=== PATIENT | female | born 1990 | race Caucasian/White ===

== ENCOUNTER 2023-12-15 17:33 | Emergency (ER) | payer OTHER ==
[2023-12-15] MEDS ORDERED: SODIUM CHLORIDE 0.9% 1,000 ML IV ONE (17:53)
[2023-12-15] MEDS ORDERED: ONDANSETRON 4 MG/2 ML VIAL IVP STA (17:53)
[2023-12-15] MEDS ORDERED: MORPHINE SULFATE 4 MG/ML SYRINGE IVP STA (17:53)
[2023-12-15] MEDS ORDERED: PIPERACILLIN-TAZOBACTAM 3.375 GM in SODIUM CHLORIDE 0.9% 100 ML IVPB STA (18:04)
[2023-12-15 18:05] VITALS: RESP 18
--- NOTE | 2023-12-15 18:16 | ED ---
Abdominal Pain HPI - General Chief Complaint: Abdominal Pain Stated Complaint: Abd Pain Time Seen by Provider: 12/15/23 17:49 Source: patient Mode of arrival: ambulatory Limitations: no limitations - History of Present Illness Initial Comments: 33-year-old female sent in from PCP for abnormal ultrasound and labs. Patient was seen by her PCP today for abdominal pain. She started having severe epigastric pain last night. She had faint pain on Monday which went away and resumed yesterday. She also mitts to nausea and vomiting. She had an outpatient ultrasound performed which showed that the common bile duct was at the upper limits of normal at 6 mm, also showed some sludge in the gallbladder. Her labs show bilirubin of 2.9 as well as AST 461 and ALT 503. Alkaline phosphatase 130. Upon presentation to the ER she is having continued pain and nausea. We do not have GI coverage at this time and the patient will require transfer. - Related Data Allergies Allergy/AdvReac Type Severity Reaction Status Date / Time No Known Allergies Allergy Verified 12/15/23 17:45 Review of Systems ROS Statement: Those systems with pertinent positive or pertinent negative responses have been documented in the HPI. ROS Other: All systems not noted in ROS Statement are negative. Past Medical History History of Any Multi-Drug Resistant Organisms: None Reported Past Surgical History: Section Past Psychological History: No Psychological Hx Reported Smoking Status: Never smoker Past Alcohol Use History: Occasional Past Drug Use History: None Reported General Exam Limitations: no limitations General appearance: alert, in no apparent distress Head exam: Present: atraumatic, normocephalic Eye exam: Present: normal appearance Neck exam: Present: normal inspection Respiratory exam: Present: normal lung sounds bilaterally. Absent: respiratory distress, wheezes, rales, rhonchi, stridor Cardiovascular Exam: Present: regular rate, normal rhythm, normal heart sounds. Absent: systolic murmur, diastolic murmur, rubs, gallop, clicks GI/Abdominal exam: Present: soft, tenderness. Absent: distended, guarding, rebound, rigid Neurological exam: Present: alert, oriented X3 Psychiatric exam: Present: normal affect, normal mood Skin exam: Present: warm, dry Course Vital Signs 12/15/23 12/15/23 17:41 19:08 Temperature 99.6 F Pulse Rate 77 63 Respiratory 18 18 Rate Blood Pressure 135/90 112/62 O2 Sat by Pulse 98 96 Oximetry Medical Decision Making - Medical Decision Making Was pt. sent in by a medical professional or institution (JOVANNI Price, AD OPERATIONS COORDINATOR, urgent care, hospital, or penitentiary...) When possible be specific @ -Sent by PCP Did you speak to anyone other than the patient for history (EMS, parent, family, police, friend...)? What history was obtained from this source @ -No Did you review nursing and triage notes (agree or disagree)? Why? @ -I reviewed and agree with nursing and triage notes Were old charts reviewed (outside hosp., previous admission, EMS record, old EKG, old radiological studies, urgent care reports/EKG's, penitentiary records)? Report findings @ -Patient's ultrasound and lab work performed outpatient today are reviewed, they show a hyperbilirubinemia and transaminitis. Ultrasound showed gallbladder sludge and common bile duct at the upper limits of normal at 6 mm. Differential Diagnosis (chest pain, altered mental status, abdominal pain women, abdominal pain men, vaginal bleeding, weakness, fever, dyspnea, syncope, headache, dizziness, GI bleed, back pain, seizure, CVA, palpatations, mental health, musculoskeletal)? @ -MDM Differential Abdominal Pain Women: Appendicitis, Cholecystitis, diverticulosis, ischemic bowel, pancreatitis, hepatitis, UTI, gastroenteritis, AAA, incarcerated hernia, bowel obstruction, constipation, inflammatory bowel, hepatitis, peptic ulcer disease, splenic infarction, perforated viscus, vulvitis, ovarian torsion, PID, kidney stone, placenta abruption... This is not meant to be an all-inclusive list EKG interpreted by me (3pts min.). @ -As above X-rays interpreted by me (1pt min.). @ -None done CT interpreted by me (1pt min.). @ -None done U/S interpreted by me (1pt. min.). @ -None done What testing was considered but not performed or refused? (CT, X-rays, U/S, labs)? Why? @ -None What meds were considered but not given or refused? Why? @ -None Did you discuss the management of the patient with other professionals (professionals i.e. JOVANNI Price, AD OPERATIONS COORDINATOR, lab, RT, psych nurse, social service coordinator, molecular genetic pathologist, teacher, state highway police officer, case finisher)? Give summary @ -I spoke with the ER physician at [facility] Dr. Davies who accepted transfer Was smoking cessation discussed for >3mins.? @ -No Was critical care preformed (if so, how long)? @ -No Were there social determinants of health that impacted care today? How? (Homelessness, low income, unemployed, alcoholism, drug addiction, transportation, low edu. Level, literacy, decrease access to med. care, group home, rehab)? @ -No Was there de-escalation of care discussed even if they declined (Discuss DNR or withdrawal of care, Hospice)? DNR status @ -No What co-morbidities impacted this encounter? (DM, HTN, Smoking, COPD, CAD, Cancer, CVA, ARF, Chemo, Hep., AIDS, mental health diagnosis, sleep apnea, morbid obesity)? @ -None Was patient admitted / discharged? Hospital course, mention meds given and route, prescriptions, significant lab abnormalities, going to OR and other pertinent info. @ -33-year-old female presenting with chief complaint of epigastric pain that started last night. Admits to nausea and vomiting. Had labs and ultrasound ordered by her PCP performed today. These are suggestive of choledocholithiasis given total bilirubin of 2.9, AST 461, ALT 503, and Alkaline phosphatase 130, combined with ultrasound findings of the common bile duct at the upper limits of normal at 6 mm. She will require transfer to a facility with GI coverage. She is given morphine, Zofran, IV fluids, and Zosyn. She is accepted at [facility]. She is agreeable with this plan. I discussed this case with my attending Dr. Milian Undiagnosed new problem with uncertain prognosis? @ -No Drug Therapy requiring intensive monitoring for toxicity (Heparin, Nitro, Insulin, Cardizem)? @ -No Were any procedures done? @ -No Diagnosis/symptom? @ -Choledocholithiasis Acute, or Chronic, or Acute on Chronic? @ -Acute Uncomplicated (without systemic symptoms) or Complicated (systemic symptoms)? @ -Complicated Side effects of treatment? @ -No Exacerbation, Progression, or Severe Exacerbation? @ -No Poses a threat to life or bodily function? How? (Chest pain, [place], [place], pneumonia, PE, COPD, DKA, ARF, appy, cholecystitis, CVA, Diverticulitis, Homicidal, Suicidal, threat to staff... and all critical care pts) @ -Yes Disposition Clinical Impression: Choledocholithiasis Disposition: OTHER INSTITUTION NOT DEFINED Condition: Stable Referrals: Mirella Hinton PAC [Primary Care Provider] - 1-2 days Time of Disposition: 18:17 - Out of Hospital Transfer - Req. Specs Out of Hospital Transfer - Requested Specifics: Other Emergency Center ([facility])
[2023-12-15 21:34] VITALS: BP 130/87; PULSE 75; TEMP 98.1
== END 2023-12-15 21:37 | disposition other institution (70) ==
LOC: EC 17:33
DX: K80.50 Calculus of bile duct without cholangitis or cholecystitis without obstruction (principal)
CPT/HCPCS: 99285; 96365; 96366; 96375 ×2; J2543; J2270; J2405

== ENCOUNTER → 2023-12-15 | Outpatient (CLI) | payer OTHER ==
--- NOTE | 2023-12-15 10:52 | US ---
EXAMINATION TYPE: US abdomen complete DATE OF EXAM: 12/15/2023 COMPARISON: NONE CLINICAL INDICATION: Female, 33 years old with history of R10.13 EPIGASTRIC PAIN; Nausea and vomiting , epigastric pain since Monday. No other pain or symptoms TECHNIQUE: Multiple sonographic images of the abdomen are obtained. FINDINGS: EXAM MEASUREMENTS: Liver Length: 16.3 cm Gallbladder Wall: 0.2 cm CBD: 0.6 cm Spleen: 11.0 cm Right Kidney: 10.6 x 4.5 x 5.6 cm Left Kidney: 11.1 x 4.7 x 4.4 cm SOFTWARE RECRUITER NOTES: Limited due to overlying gas and patient body habitus Pancreas: No gross abnormality Liver: wnl as best visualized Gallbladder: internal echoes seen within gallbladder, sludge vs artifact. No hydropic change, wall t hickening, or shadowing calculi. Evidence for sonographic Camilo's sign: No CBD: Borderline dilated to the upper limits of normal Spleen: wnl as best visualized Right Kidney: No hydronephrosis or masses seen Left Kidney: Small extrarenal pelvis. No hydronephrosis. Upper IVC: wnl as best visualized Abd Aorta: wnl IMPRESSION: 1. Some sludge in the gallbladder. No gallstones. 2. Bile duct measures at the upper limits of normal in caliber at 6 mm. Correlate with alkaline phosp hatase and bilirubin levels to exclude early biliary obstruction.
[2023-12-15 15:45] LABS: Basophils # (A) 0.03 X 10*3/uL (0.00-0.10); Basophils % (A) 0.5 %; Eosinophils # (A) 0.09 X 10*3/uL (0.04-0.35); Eosinophils % (A) 1.5 %; HCT 40.6 % (37.2-46.3); Lymphocytes # (A) 1.67 X 10*3/uL (0.90-5.00); Lymphocytes % (A) 27.8 %; MCH 32.6 pg (27.0-32.0); MCHC 34.5 g/dL (32.0-37.0); MCV 94.6 FL (80.0-97.0); Mean Platelet Volume 11.2 FL (9.5-12.2); Monocytes # (A) 0.41 X 10*3/uL (0.20-1.00); Monocytes % (A) 6.8 %; NRBC Per 100 WBC 0 X 10*3/uL (0.00-0.01); Neutrophils % (A) 63.2 %; Platelet Count 210 X 10*3/uL (140-440); RBC 4.29 X 10*6/uL (4.10-5.20); RDW 12.6 % (11.5-14.5); WBC 6.01 X 10*3/uL (4.50-10.00)
[2023-12-15 16:52] LABS: Amylase 33 U/L (23-121); Lipase 18 U/L (14-63)
[2023-12-15 16:54] LABS: ALT 503 U/L (8-44); AST 461 U/L (13-35); Albumin 4.2 g/dL (3.8-4.9); Albumin/Globulin Ratio 1.56 Ratio (1.60-3.17); Alkaline Phosphatase 130 U/L (41-126); BUN/Creat Ratio 11.12 Ratio (12.00-20.00); Blood Urea Nitrogen 8.9 mg/dL (9.0-27.0); Calcium 9.8 mg/dL (8.7-10.3); Carbon Dioxide 22.7 mmol/L (21.6-31.8); Chloride 105 mmol/L (96-109); Globulin 2.7 g/dL (1.6-3.3); Glucose 93 mg/dL (70-110); Potassium 4.4 mmol/L (3.5-5.5); Sodium 140 mmol/L (135-145); Total Bilirubin 2.9 mg/dL (0.3-1.2); Total Protein 6.9 g/dL (6.2-8.2)
== END | disposition home or self-care (01) ==
LOC: RADUSWWP 09:36
PROVIDERS: ATTEND Family Medicine
DX: K82.8 Other specified diseases of gallbladder (principal); R10.13 Epigastric pain; R11.2 Nausea with vomiting, unspecified
CPT/HCPCS: 76700; 80053; 82150; 83013; 83690; 85025

== ENCOUNTER → 2024-07-29 | Outpatient (CLI) | payer OTHER ==
[2024-07-29 15:23] LABS: Basophils # (A) 0.04 X 10*3/uL (0.00-0.10); Basophils % (A) 0.4 %; Eosinophils # (A) 0.09 X 10*3/uL (0.04-0.35); Eosinophils % (A) 0.8 %; HCT 42.5 % (37.2-46.3); HGB 14.4 g/dL (12.0-15.0); Lymphocytes # (A) 2.12 X 10*3/uL (0.90-5.00); Lymphocytes % (A) 19.9 %; MCH 33.3 pg (27.0-32.0); MCHC 33.9 g/dL (32.0-37.0); MCV 98.2 FL (80.0-97.0); Mean Platelet Volume 11.5 FL (9.5-12.2); Monocytes % (A) 5.6 %; NRBC Per 100 WBC 0 X 10*3/uL (0.00-0.01); Neutrophils # (A) 7.79 X 10*3/uL (1.80-7.70); Platelet Count 221 X 10*3/uL (140-440); RBC 4.33 X 10*6/uL (4.10-5.20); RDW 12.4 % (11.5-14.5); WBC 10.67 X 10*3/uL (4.50-10.00)
[2024-07-29 15:26] LABS: Appearance,Urine Turbid (Clear); Bilirubin,Urine Negative (Negative); Blood,Urine Negative (Negative); Color,Urine Yellow (Yellow); Ketones,Urine 15 (Negative); Nitrite,Urine Negative (Negative); PH, Urine 5.5; Specific Gravity,Urine 1.025 (1.001-1.030)
[2024-07-29 15:31] LABS: Bacteria,Urine 1+ (None Seen)
[2024-07-29 15:58] LABS: ALT 41 U/L (8-44); AST 24 U/L (13-35); Albumin 4.2 g/dL (3.8-4.9); Albumin/Globulin Ratio 1.75 Ratio (1.60-3.17); Alkaline Phosphatase 87 U/L (41-126); BUN/Creat Ratio 13.29 Ratio (12.00-20.00); Blood Urea Nitrogen 9.3 mg/dL (9.0-27.0); Calcium 9.3 mg/dL (8.7-10.3); Carbon Dioxide 21.7 mmol/L (21.6-31.8); Chloride 107 mmol/L (96-109); Globulin 2.4 g/dL (1.6-3.3); Glucose 102 mg/dL (70-110); LDL Cholesterol,Calculated 94.5 mg/dL (0.0-131.0); Potassium 3.9 mmol/L (3.5-5.5); Sodium 141 mmol/L (135-145); Total Bilirubin 0.6 mg/dL (0.3-1.2); Total Protein 6.6 g/dL (6.2-8.2); VLDL Calculation 13.44 mg/dL (5.00-40.00)
== END | disposition home or self-care (01) ==
LOC: LABWHC1 07:53
PROVIDERS: ATTEND Family Medicine
DX: Z68.41 Body mass index [BMI] 40.0-44.9, adult
CPT/HCPCS: 36415; 80053; 80061; 81001; 82306; 83036; 84443; 85025